=== PATIENT | female | born 1965 | race Caucasian/White ===

== ENCOUNTER 2018-06-21 08:14 | Inpatient (IN) | payer SELFPAY ==
[2018-06-21] MEDS ORDERED: NS 0.9% 1000 ML* 1,000 ML IV ONE (08:46)
--- NOTE | 2018-06-21 09:07 | ED ---
Complex/Multi-Sys Presentation - HPI Summary HPI Summary: Patient is a 52 y/o female who presents to the ED c/o back pain. She states she has not been feeling well for 1 year. 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 The mass is believed to be a neoplasm, and they also found enlarged lymph nodes. Patient was offered to stay in the hospital for a work-up and surgery, but she declined because she wanted to have her work-up here. She also has a low pulse in the 30s , which goes down to the 20s when shes sick. Patient becomes dizzy and near- syncopal with this low pulse. She has cardiac issues and was offered in the past to get a pacemaker but she refused. Recently, patient has been more sick within this past week with flu-like symptoms. She reports severe upper back pain that feels stabbing and a runny nose. Patient denies any CP, SOB, or abdominal pain. She is a smoker and uses marijuana for the pain. - History Of Current Complaint Chief Complaint: EDGeneral Time Seen by Provider: 06/21/18 08:32 Hx Obtained From: Patient, Medical Records Onset/Duration: Gradual Onset, Lasting Weeks - 1 year, worse this past week, Still Present Timing: Constant Location: Pain At: - Upper back Character: Sharp - Stabbing Associated Signs And Symptoms: Positive: Dizziness, Back Pain. Negative: SOB, Chest Pain, Abdominal Pain Related History: Recent Hospitalization - Found hilar mass on CT - Allergies/Home Medications Allergies/Adverse Reactions: Allergies Allergy/AdvReac Type Severity Reaction Status Date / Time Sulfa (Sulfonamide Allergy Altered Verified 06/21/18 08:28 Antibiotics) Mental Status Home Medications: Home Medications Hydrocodone/Acetaminophen [Hydrocodone-Acetamin 5-325 mg] 1 tab PO Q6HR PRN 11/07 [History Confirmed 06/21/18] Naproxen [Naproxen 500 mg tab] 500 mg PO BID PRN 06/21/18 [History Confirmed 11/07] PMH/Surg Hx/FS Hx/Imm Hx Cardiovascular History: Reports: Other Cardiovascular Problems/Disorders - Chronic bradycardia, PVCs Respiratory History: Reports: Hx Asthma - Surgical History Surgery Procedure, Year, and Place: C-sections, cardiac catherization - Immunization History Immunizations Up to Date: Yes Infectious Disease History: No Infectious Disease History: Denies: Traveled Outside the [place] in Last 30 Days - Family History Known Family History: Negative: Blood Disorder - Social History Alcohol Use: None Hx Substance Use: Yes Substance Use Type: Reports: Marijuana Hx Tobacco Use: Yes Smoking Status (MU): Heavy Every Day Tobacco Smoker Type: Cigarettes Amount Used/How Often: 1/2 ppd Have You Smoked in the Last Year: Yes Review of Systems Positive: Other - Malaise Positive: Nasal Discharge Negative: Chest Pain Negative: Shortness Of Breath Negative: Abdominal Pain Positive: Myalgia - Upper back pain Neurological: Other - Dizziness Positive: Syncope - Near-syncope All Other Systems Reviewed And Are Negative: Yes Physical Exam - Summary Physical Exam Summary: VITAL SIGNS: Reviewed. GENERAL: Patient is a well-developed and nourished FEMALE who is lying comfortable in the stretcher. Patient is not in any acute respiratory distress. HEAD AND FACE: No signs of trauma. No ecchymosis, hematomas or skull depressions. No sinus tenderness. EYES: PERRLA, EOMI x 2, No injected conjunctiva, no nystagmus. EARS: Hearing grossly intact. Ear canals and tympanic membranes are within normal limits. MOUTH: Oropharynx within normal limits. NECK: Supple, trachea is midline, no adenopathy, no JVD, no carotid bruit, no c- spine tenderness, neck with full ROM. CHEST: Symmetric, no tenderness at palpation LUNGS: Crackles in bilateral bases CVS: Regular rate and rhythm, S1 and S2 present, no murmurs or gallops appreciated. ABDOMEN: Soft, non-tender. No signs of distention. No rebound no guarding, and no masses palpated. Bowel sounds are normal. EXTREMITIES: FROM in all major joints, no edema, no cyanosis or clubbing. NEURO: Alert and oriented x 3. No acute neurological deficits. Speech is normal and follows commands. SKIN: Dry and warm Triage Information Reviewed: Yes Vital Signs On Initial Exam: Initial Vitals Temp Pulse Resp BP Pulse Ox 98.3 F 44 17 140/75 100 06/21/18 08:19 06/21/18 08:19 06/21/18 08:19 06/21/18 08:19 06/21/18 08:19 Vital Signs Reviewed: Yes Diagnostics - Vital Signs Vital Signs Temp Pulse Resp BP Pulse Ox 06/21/18 08:19 98.3 F 44 17 140/75 100 - Laboratory Result Diagrams: 06/22/18 04:54 06/22/18 04:54 Lab Statement: Any lab studies that have been ordered have been reviewed, and results considered in the medical decision making process. - Radiology CXR Xray Interpretation: Positive (See Comments) - STABLE RIGHT PERIHILAR MASS. ED physician reviewed radiology report. Radiology Interpretation Completed By: Radiologist - EKG 08:51 Cardiac Rate: Bradycardia - 41 bpm EKG Rhythm: Sinus Rhythm EKG Interpretation: No ST elevations Complex Multi-Symp Course/Dx Assessment/Plan: Patient is a 52 y/o female who presents to the ED c/o back pain. She states she has not been feeling well for 1 year. 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 The mass is believed to be a neoplasm, and they also found enlarged lymph nodes. Patient was offered to stay in the hospital for a work-up and surgery, but she declined because she wanted to have her work-up here. She also has a low pulse in the 30s, which goes down to the 20s when shes sick. Patient becomes dizzy and near-syncopal with this low pulse. She has cardiac issues and was offered in the past to get a pacemaker but she refused. Recently, patient has been more sick within this past week with flu-like symptoms. She reports severe upper back pain that feels stabbing and a runny nose. Patient denies any CP, SOB, or abdominal pain. She is a smoker and uses marijuana for the pain. This patient hand in a CT reports of the chest done at [facility] in [place] which is reads as right hilar a spiculated mass concerning for primary neoplasm. 5 mm right upper lobe lung nodule. Right hilar lymph nodes and shotty right pretracheal lymph node bilateral adrenal nodules. Indeterminate hypervascular hepatic lesion. Follow-up with the abdomen and pelvic CT. Blood work without any significant abnormality except for glucose of 110, AST 11, CRP 31, BNP 122. Chest x-ray impression: A stable right perihilar mass. I discussed the case with Dr. Delatorre from oncology and he will be happy to consult for this patient. Because of the complaint of dizziness or feeling that she is going to pass out with a symptomatic bradycardia I discussed the case with with Dr. Champion from the hospital services and he accepted the patient for admission. At this time the patient is hemodynamically stable alert and oriented 3. - Diagnoses Provider Diagnoses: Symptomatic bradycardia, Lung mass - Physician Notifications Discussed Care Of Patient With: Rony Champion Time Discussed With Above Provider: 11:50 Instructed by Provider To: Admit As Inpatient Discharge - Sign-Out/Discharge Documenting (check all that apply): Patient Departure - Admit - Discharge Plan Condition: Stable Disposition: ADMITTED TO [facility] - Billing Disposition and Condition Condition: STABLE Disposition: Admitted to [facility] - Attestation Statements Document Initiated by Steveibe: Yes Documenting Scribe: Emerald Rachel Provider For Whom Sun is Documenting (Include Credential): Lenny Galindo MD Scribe Attestation: Emerald Cordero, scribed for Lenny Galindo MD on 06/23/18 at 0858. Scribe Documentation Reviewed: Yes Provider Attestation: The documentation as recorded by the Emerald marquis accurately reflects the service I personally performed and the decisions made by , Lenny Galindo MD
[2018-06-21 09:19] LABS: ABS Basophils 0.1 10^3/ul (0-0.2); ABS Eosinophils 0.3 10^3/ul (0-0.6); ABS Lymphocytes 2.6 10^3/ul (1.0-4.8); ABS Monocytes 0.9 10^3/ul (0-0.8); ABS Nucleated RBC 0 10^3/ul; Eosinophil % 2.7 % (0-6); Hematocrit 40 % (35-47); Hemoglobin 13.1 g/dl (12.0-16.0); Lymphocyte % 23.7 % (25-47); Mean Corpuscular HGB Conc 33 g/dl (31-36); Mean Corpuscular Hemoglobin 27 pg (27-31); Mean Corpuscular Volume 82 fL (80-97); Mean Platelet Volume 8.7 um3 (7.4-10.4); Nucleated Red Blood Cells % 0.1; Platelet Count 186 10^3/ul (150-450); Red Blood Count 4.88 10^6/ul (4.00-5.40); Red Cell Distribution Width 14 % (10.5-15); White Blood Count 10.9 10^3/ul (3.5-10.8)
[2018-06-21 09:28] LABS: INR 0.97 (0.77-1.02)
[2018-06-21 09:40] LABS: EGFR Non-African American 87.2 (>60)
--- NOTE | 2018-06-21 10:05 | RAD ---
HISTORY: Weakness COMPARISONS: CT of the chest dated June 17, 2018 VIEWS: 4: Frontal dual-energy and lateral views of the chest. FINDINGS: CARDIOMEDIASTINAL SILHOUETTE: The cardiomediastinal silhouette is normal. LUIS: The luis are normal. PLEURA: The costophrenic angles are sharp. No pleural abnormalities are noted. LUNG PARENCHYMA: There is a density of the right perihilar lung corresponding to the mass visible on the CT of June 17, 2018. There is hyperinflation. ABDOMEN: The upper abdomen is clear. There is no subphrenic gas. BONES AND SOFT TISSUES: No bone or soft tissue abnormalities are noted. OTHER: None. IMPRESSION: STABLE RIGHT PERIHILAR MASS.
[2018-06-21 10:39] LABS: Urine Appearance Cloudy; Urine Blood Negative (Negative); Urine Color Yellow; Urine Ketones Negative (Negative); Urine Protein Negative (Negative); Urine Specific Gravity 1.025 (1.010-1.030); Urine Urobilinogen Negative (Negative)
[2018-06-21] MEDS ORDERED: Acetaminophen TAB* 325 MG PO PRN (12:14)
[2018-06-21] MEDS ORDERED: NS 0.9% 1000 ML* 1,000 ML IV SCH (12:15)
[2018-06-21] MEDS ORDERED: ceFAZolin 1 GM VIAL(*) 1 GM in NS 0.9% 50 ML* 50 ML IVPB ONE (12:46)
[2018-06-21] MEDS ORDERED: Diazepam TAB(*) 5 MG PO ONE (12:46)
[2018-06-21] MEDS ORDERED: ceFAZolin 2 GM PREMIX in ORs 2 GM/50 ML BAG IVPB ONE (12:46)
[2018-06-21] MEDS ORDERED: ceFAZolin 1 GM/10 ML flush(*) SYRINGE for pocket flush (cardiology) FLUSH ONE (13:00)
[2018-06-21] MEDS ORDERED: Lidocaine 1% INJ* 10 MG/ML 30 ML SDV ONE (14:46)
[2018-06-21] MEDS ORDERED: Midazolam* 1 MG/ML 5 ML VIAL (5 MG) ONE (14:52)
[2018-06-21] MEDS ORDERED: fentaNYL* 50 MCG/ML 2 ML VIAL (100 MCG VIAL) ONE (14:52)
[2018-06-21] MEDS: Heparin VIAL(*) 5000 UNITS/ML VIAL (FIVE THOUSAND) SUBCUT SCH ×2 (14:58→22:24)
--- NOTE | 2018-06-21 14:59 | ECHO ---
Patient: NOAH HART [facility] Rec#: [id number] : 1965 Date: 06/21/2018 Age: 52y Height: 165 cm / 65.0 in Weight: 160 kg / 352.6 lbs Sex: F BSA: 2.52 Room#: [id number] Admit Date#: 06/21/2018 Type: Inpatient Referring: Alex Garza MD Reading: Alex Garza MD Frozen Yogurt Maker: [facility] Transthoracic Echocardiogram Indication: Shortness of breath BP: 126/79 HR: 40 Rhythm: Bradycardia Findings History: Smoker, hilar mass. Technical Comments: The study quality is good. Completed at 1415. Left Ventricle: The left ventricular chamber size is mildly dilated. There is no left ventricular hypertrophy. There is diffuse global hypokinesis of the left ventricle. Left ventricular systolic function is at the lower limits of normal. The estimated ejection fraction is 50-55%. Normal left ventricular diastolic filling is observed. Left Atrium: The left atrium is moderately dilated. Right Ventricle: Moderator Band present. The right ventricular cavity size is normal. The right ventricular global systolic function is normal. Right Atrium: The right atrium is moderately dilated. Aortic Valve: The aortic valve is trileaflet. The aortic valve leaflets are mildly thickened. There is a trace of aortic regurgitation. There is no evidence of aortic stenosis. Mitral Valve: The mitral valve leaflets are mildly thickened. There is trace to mild mitral regurgitation. There is no evidence of mitral stenosis. Tricuspid Valve: The tricuspid valve leaflets are normal. There is trace to mild tricuspid regurgitation. The right ventricular systolic pressure is estimated at 30 mmHg. There is evidence that pulmonary hypertension may be underestimated. There is no tricuspid stenosis. Pulmonic Valve: The pulmonic valve appears normal. There is a trace pulmonic regurgitation. There is no pulmonic stenosis. Pericardium: There is no significant pericardial effusion. Aorta: There is mild dilatation of the ascending aorta. There is no dilatation of the aortic arch. The aortic root is normal in size. Pulmonary Artery: The main pulmonary artery appears normal. Venous: The inferior vena cava is dilated. There is a greater than 50% respiratory change in the inferior vena cava dimension. Summary: There was not any prior study for comparison. Conclusions There is diffuse global hypokinesis of the left ventricle. Left ventricular systolic function is at the lower limits of normal. The estimated ejection fraction is 50-55%. The right ventricular global systolic function is normal. There is no evidence of aortic stenosis. There is trace to mild mitral regurgitation. There is trace to mild tricuspid regurgitation. The right ventricular systolic pressure is estimated at 30 mmHg. There is no significant pericardial effusion. Measurements Name Value Normal Range RVIDd (AP) 2D 3.2 cm (0.9 - 2.6) RVDdMajor (2D) 3.9 cm (2.2 - 4.4) RAd ISD 4CH 5.6 cm (3.4 - 4.9) RA (A4C)W 2.7 cm (2.9 - 4.6) IVSd (2D) 0.7 cm (0.6 - 1) LVPWd (2D) 0.8 cm (0.6 - 1) LVIDd (2D) 5.6 cm (3.6 - 5.4) LVIDs (2D) 4.3 cm - LV FS (2D) 23 % (25 - 45) Aortic Annulus 1.8 cm (1.4 - 2.6) Ao root diameter (2D) 3.4 cm (2.1 - 3.5) Ascending Ao 3.5 cm (2.1 - 3.4) Aortic arch 2.5 cm (1.8 - 3.4) LA dimension (AP) 2D 4 cm (2.3 - 3.8) LAd ISD 4CH 5.6 cm (2.9 - 5.3) LA ISD 4CH W 4.5 cm (2.5 - 4.5) Name Value Normal Range LA ESV BP (A/L) index 44 ml/m2 - Name Value Normal Range MV E-wave Vmax 0.7 m/sec - MV deceleration time 169 msec - MV A-wave Vmax 0.6 m/sec - MV E:A ratio 1.1 ratio - LV septal e' Vmax 0.08 m/sec - LV lateral e' Vmax 0.09 m/sec - LV E:e' septal ratio 8.75 ratio - LV E:e' lateral ratio 7.78 ratio - Name Value Normal Range AV Vmax 1.5 m/sec - AV VTI 38.3 cm - AV peak gradient 9 mmHg - AV mean gradient 5 mmHg - LVOT Vmax 1 m/sec - LVOT VTI 24.8 cm - LVOT peak gradient 4 mmHg - LVOT mean gradient 2 mmHg - ELE Vmax 0.7 m/sec - Name Value Normal Range TR Vmax 2.6 m/sec - TR peak gradient 27 mmHg - RAP 3 mmHg - RVSP 30 mmHg - IVC diameter 2.7 cm - Name Value Normal Range PV Vmax 0.8 m/sec - PV peak gradient 2 mmHg -
[2018-06-21] MEDS: HYDROcodone/ACETAMIN 5-325 MG* 1 TAB PO PRN ×2 (16:45→22:39)
--- NOTE | 2018-06-21 18:06 | RAD ---
INDICATION: Status post device implant. COMPARISON: Correlation is made with a prior chest x-ray study obtained earlier today and a recent outside CT of the chest from June 17, 2018. TECHNIQUE: A portable view of the chest was obtained. FINDINGS: Cardiac and mediastinal contours appear to be within normal limits. The patient is status post placement of a dual-chamber transvenous pacemaker. Again note is made of a mass which projects lateral to the right hilum measuring 3.5 x 2.5 cm in size. This appears unchanged from the recent prior CT of the chest. No pleural effusion or pneumothorax is seen. IMPRESSION: 1. STATUS POST PACEMAKER PLACEMENT, NO EVIDENCE FOR ACUTE FINDING. 2. THERE IS A MASS WHICH PROJECTS LATERAL TO THE RIGHT HILUM.
--- NOTE | 2018-06-21 20:58 | HP ---
CC: Dr. Delatorre; Dr. Garza * HISTORY AND PHYSICAL: DATE OF ADMISSION: 06/21/18 PRIMARY CARE PROVIDER: None. ATTENDING PHYSICIAN WHILE IN THE HOSPITAL: Edward Champion MD * (report dictated by Uvaldo Burrows NP). CONSULTING ONCOLOGIST: Dr. Delatorre. CONSULTING LEASE EXAMINER: Dr. Garza. CHIEF COMPLAINT: 1. Bradycardia. 2. Lung mass. HISTORY OF PRESENT ILLNESS: Ms. Isabel is a 52-year-old female patient. She has a known history of sick sinus syndrome. She received evaluation with an air traffic control specialist, Dr. Cee from [facility]. The records are in [employer] and they were accessed by Dr. Garza. She has been lost to followup. She was being seen by Dr. Nielson for this and was supposed to have a pacemaker. Unfortunately , she did not have insurance and she refused to have the pacemaker placed. She has not seen a hand blocker or a PCP in the last 3 years. However, the last few days when she traveled down to [place] periodically to do help down there and work, she was having episodes with pain in her back and having a cough that was nonproductive and had been going on for several days. She went to an ER down there. She ultimately had CT imaging, which did show a mass in the hilar area that was approximately 3.8 x 2.7 cm and she had a 6 mm paratracheal lymph node. The patient at that point was offered workup down in [place] at [facility], but the patient decided that she want to come back to [facility] for further workup where her family was. She denies having any fevers or chills. Denies having any cough. She is admitting having low back pain currently, but she says this is near her baseline. She denied having any dysuria or frequency. There have been no reports of weight loss that she is aware of. Denies having any vomiting or diarrhea. There are no reports of syncope. She does state that she has just been feeling tired and denied having any chest pain or shortness of breath or orthopnea. She came into the ED today. She was noted again to be bradycardic and because of this we were asked to evaluate for admission. PAST MEDICAL HISTORY: Significant for sick sinus syndrome. PAST SURGICAL HISTORY: She has had and a cardiac catheterization 3 years ago, which was reported as no coronary artery disease. HOME MEDICATIONS: Include: 1. Naproxen 500 mg p.o. b.i.d. as needed. 2. Aspirin 81 mg daily. 3. Tylenol 2 tablets every 6 hours as needed. 4. [place] 1 tablet every 6 hours as needed. ALLERGIES TO MEDICATIONS: Include SULFA DRUGS. FAMILY HISTORY: Her mother had lung cancer and her father had a history of CAD. SOCIAL HISTORY: She is a half a pack a day smoker. She has been smoking for about 30 to 35 years. She does not drink alcohol. Surrogate decision maker is her daughter. REVIEW OF SYSTEMS: There is no documented fever. She denied having any significant weight change. There was no double vision. She denied having any ear discharge. There is no rhinorrhea. There was no sore throat, no thyroid enlargement. She denied having any chest pain. There was no orthopnea. There was no nocturnal dyspnea. She denied having any abdominal pain. There was no nausea, no vomiting. There was no dysuria, no frequency. No seizure, no loss of consciousness. No pruritus and no skin ulcerations. Review of 14 systems was completed, all others negative. PHYSICAL EXAMINATION GENERAL: At this time, Ms. Isabel is a 52-year-old female patient. She is sitting in the ED stretcher. She does not appear to be in any acute distress. VITAL SIGNS: Blood pressure 126/79 with a pulse of 37, respirations were 20, O2 sat 97%, temperature 98.3. HEENT: Head: Atraumatic and normocephalic. Eyes: EOMs are intact. Sclerae anicteric and not pale. Throat: Oral mucosa appears to be moist. No oropharyngeal erythema. NECK: Supple. LUNGS: Clear to auscultation bilaterally. There were no wheezes, rales, or rhonchi. HEART: Sounds S1, S2. She is bradycardic. There were no murmurs, rubs, or gallops. ABDOMEN: Soft. It was flat. It was nontender. Bowel sounds were present. EXTREMITIES: Pulses were 2+ throughout. She is moving all 4 extremities with 5 /5 strength. NEUROLOGICAL: She is awake. She is alert. She is oriented x3. Tongue midline. Health/Safety Job Titles were equal. She had no gross focal deficits. SKIN: Intact. DIAGNOSTIC STUDIES/LAB DATA: WBC 10.9, RBC of 4.88, hemoglobin of 13.1, hematocrit of 40, platelet count of 186,000. The INR was 0.97, PTT of 32.0. Sodium 141, potassium 4.4, chloride of 109, bicarb 28, BUN 19, creatinine 0.70, glucose 110, lactic 0.9, calcium 9.1. Total bili 0.3, AST 11, ALT 13, alk phos 45. CK 51, CK- MB 1.3, troponin 0. CRP of 31. Albumin of 3.7. Urine was obtained and it was negative. She did have a chest x-ray obtained today, which showed impression: Stable right hilar mass. She did have an EKG obtained today showing a sinus bradycardia, rate of 41. No ST elevations or T-wave inversions were noted. Old medical records were reviewed. ASSESSMENT AND PLAN: Ms. Isabel is a 52-year-old female patient coming into the ED today with complaints of fatigue, in addition to this abnormal CT findings and bradycardia. The patient presented to the ER for this. She was found to be bradycardic. We were asked to evaluate for admission. She will be admitted under observation status for: 1. Bradycardia. I did touch base with Dr. Garza, who will evaluate the patient for possible pacemaker. She is n.p.o. possibly for this today. She is hemodynamically stable. I will check her TSH and her mag. I will cycle her troponins and we will continue to follow. 2. Hilar mass. I had a call out to Dr. Delatorre. The plan would be for a possible biopsy of this, but again we will need to address the cardiac issues first and we will continue to monitor for the time being, but she will need again followup with Dr. Delatorre, she will need biopsy and we will need to get this arranged after we address the cardiac issues. 3. DVT prophylaxis: She is high risk. She will be placed on heparin subcu, which is on hold until pacemaker placement. 4. Code status: Full code. 5. Fluids, electrolytes, and nutrition: N.p.o. She has had normal saline at 100 an hour while she is n.p.o. TIME SPENT: Time spent on the admission was 60 minutes, greater than half the time was spent [id number] with the patient obtaining my history and physical, other half time was spent going over the plan of care with the patient and implementing the plan of care. I discussed the plan of care with my attending, Dr. Champion; he is in agreement. UVALDO BURROWS NP [id number]/[facility] #: [id number] JORDAN
--- NOTE | 2018-06-21 20:58 | CONS ---
CARDIOLOGY CONSULTATION: DATE OF CONSULT: 06/21/18 INDICATION FOR CONSULTATION: Bradycardia. HISTORY OF PRESENT ILLNESS: The patient is a 52-year-old female with a long history of bradycardia, who was admitted to the emergency room after having an abnormal CAT scan done in [place]. The patient was seen in [address] Nielson and by Dr. Ravi Cee. At that time, cardiac catheterization showed normal coronary arteries and echocardiogram showed low normal LV systolic function. The patient had significant bradycardia and was diagnosed with sick sinus syndrome. Pacemaker was recommended at that time and the patient did not want to proceed with pacemaker implantation. The patient was recently in [place] and went to the emergency room for evaluation of shortness of breath. At that time, CAT scan showed a suspicious mass in her right upper lung murphy and a suspicious mass in her adrenal gland. The patient came back to [place] for evaluation. The patient is now in the emergency room for evaluation. The patient's baseline heart rate is 38 beats per minute. Over the past couple of years, the patient has had a couple of episodes of lightheadedness, but no true episodes of syncope. PAST SURGICAL HISTORY: None. OUTPATIENT MEDICATIONS: 1. Pain medications. 2. Naprosyn. 3. Aspirin. ALLERGIES: To SULFA MEDICATIONS. FAMILY HISTORY: No family history of early coronary artery disease or cardiac arrhythmias. 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 She does smoke 1 pack of cigarettes a day. Occasional alcohol use. No recreational drug use. REVIEW OF SYSTEMS: Negative for fevers and chills. Negative for changes in bowel or bladder habits. Negative for changes in weight. Other 12-point review is unremarkable. PHYSICAL EXAM: Height is 5 feet 5 inches, weight is 160 pounds, heart rate is 38, blood pressure 124/72, respiratory rate is 15, oxygen saturation 97% on room air. Sclerae anicteric. Oropharynx is pink without erythema. Carotids are 2+ without bruits. JVD is normal. Thyroid is normal. Cardiac Exam: S1, S2 without any murmurs, rubs, or gallops. Lungs are clear to auscultation bilaterally. There is no dullness to percussion. Abdomen is soft, nontender, nondistended with normoactive bowel sounds. Extremities show no edema. She has 2+ pulses throughout. The patient is awake, alert, and oriented. She moves all extremities equally. DIAGNOSTIC STUDIES/LAB DATA: EKG today demonstrates sinus bradycardia at 41 beats per minute, otherwise unremarkable. Laboratory studies: CBC within normal limits. Chemistries within normal limits. Chest x-ray shows a density in the perihilar lung. IMPRESSION AND PLAN: This is a 52-year-old female, who came to the emergency room for evaluation of a hilar lung mass. The patient has a heart rate of 38 beats per minute. The patient has had an evaluation in the past by Dr. Cee and the recommendation at that time was permanent pacemaker implantation. Given the diagnosis of a hilar mass, it is recommended that the patient undergo pacemaker implantation to facilitate the evaluation of her hilar mass. The risks and benefits of this were described in great detail and the patient is willing to proceed. The patient will be scheduled for permanent pacemaker implantation today. [id number]/[facility] #: [id number] MTDD
[2018-06-22] MEDS: HYDROcodone/ACETAMIN 5-325 MG* 1 TAB PO PRN ×4 (02:35→16:11)
[2018-06-22 05:17] LABS: ABS Basophils 0.1 10^3/ul (0-0.2); ABS Eosinophils 0.3 10^3/ul (0-0.6); ABS Lymphocytes 2.4 10^3/ul (1.0-4.8); ABS Monocytes 0.7 10^3/ul (0-0.8); ABS Neutrophils 5.3 10^3/ul (1.5-7.7); ABS Nucleated RBC 0 10^3/ul; Hematocrit 39 % (35-47); Hemoglobin 12.8 g/dl (12.0-16.0); Lymphocyte % 27.7 % (25-47); Mean Corpuscular HGB Conc 33 g/dl (31-36); Mean Corpuscular Hemoglobin 27 pg (27-31); Mean Corpuscular Volume 82 fL (80-97); Mean Platelet Volume 8.7 um3 (7.4-10.4); Nucleated Red Blood Cells % 0.1; Platelet Count 191 10^3/ul (150-450); Red Blood Count 4.78 10^6/ul (4.00-5.40); Red Cell Distribution Width 13 % (10.5-15); White Blood Count 8.7 10^3/ul (3.5-10.8)
[2018-06-22 05:24] LABS: INR 1.03 (0.77-1.02)
[2018-06-22 05:38] LABS: EGFR Non-African American 100.3 (>60)
[2018-06-22] MEDS: Heparin VIAL(*) 5000 UNITS/ML VIAL (FIVE THOUSAND) SUBCUT SCH ×2 (05:56→15:50)
--- NOTE | 2018-06-22 08:49 | RAD ---
INDICATION: Post pacemaker placement yesterday. Asthma. COMPARISON: June 21, 2018 chest radiograph and June 17, 2018 CT. TECHNIQUE: Dual energy PA and routine lateral views of the chest were obtained. REPORT: Unchanged RIGHT atrial and RIGHT ventricular level pacemaker leads. Negative for pneumothorax. RIGHT mid lung zone perihilar mass measuring up to 2.4 cm cephalocaudal by 4.2 cm transverse is grossly unchanged compared with the previous chest radiograph and CT. Associated prominence of the RIGHT hilum corresponding with hilar adenopathy on CT. Grossly clear pleural spaces. Negative for cardiomegaly. Unremarkable central pulmonary vasculature. IMPRESSION: #. Negative for pneumothorax or pulmonary edema post pacemaker placement. #. RIGHT upper lobe mass and hilar adenopathy.
[2018-06-22] MEDS ORDERED: Aspirin EC TAB* 81 MG TAB.EC PO SCH (09:00)
--- NOTE | 2018-06-22 10:59 | OP ---
AMENDED REPORT NOW INCLUDES DATE OF OPERATION - ESIGNED BEFORE ADJUSTMENT * DATE OF OPERATION: 06/21/18 - ROOM #451 DATE OF : 61 SURGEON: Alex Garza MD ANESTHESIA: Local anesthesia with conscious sedation. PRE-OP DIAGNOSES: 1. Sick sinus syndrome. 2. Brachycardia. POST-OP DIAGNOSES: 1. Sick sinus syndrome. 2. Brachycardia. OPERATIVE PROCEDURE: Dual-chamber pacemaker implantation. INDICATIONS: The patient is a 52-year-old female who has a history of sick sinus syndrome and bradycardia. She had been evaluated by an stage technician up at [facility] in 2016. At that time, the recommendations were to undergo dual-chamber pacemaker implantation. She did not have any insurance at that time and decided not to proceed with that. The patient was recently diagnosed with right upper hilar mass and was evaluated in the emergency room. The patient's heart rate was 38 beats per minute, permanent pacemaker was recommended. ESTIMATED BLOOD LOSS: Nil. COMPLICATIONS: None. DESCRIPTION OF PROCEDURE: The patient was brought to the procedure room in a fasting state. Informed consent had been obtained prior to the procedure. All labs had been reviewed. The patient was placed supine on the procedure table. Her left deltopectoral area was cleaned and draped in the usual fashion. 1% lidocaine was used for local anesthesia. The axillary vein was entered by a modified Seldinger technique and a guidewire was placed. A second wire was placed under the same technique using ultrasound guidance. A 4-cm incision was made in the pectoral area and blunt dissection was carried down to the pectoral fascia. A small pocket was fashioned for the pacemaker. Over the guidewire, a 7-[place] sheath introducer was placed, through which a right ventricular lead was advanced to the RV apex and the right ventricular lead is a Medtronic model 5076, serial number [id number] and had a R-wave sensitivity of 3.5, impedance 778 ohms, threshold 0.6 volts at 0.5 milliseconds. The ventricular lead was sutured to the pectoral fascia. Over the guidewire, a 7-[place] sheath introducer was placed, through which a right atrial lead was advanced to the high right atrium. The right atrial lead is a Medtronic model 5076, serial number [id number] and had a P-wave sensitivity of 2.8, impedance 926 ohms, threshold 1.6 volts at 0.5 milliseconds. The atrial lead was sutured to the pectoral fascia. The pocket was flushed with antibiotic infused normal saline. A generator was attached appropriately to the atrial and ventricular lead. The generator is a [employer] model W1DR01, serial number [id number]. The device was placed in the pocket and surgical incision was closed in 3 layers. The patient tolerated the procedure well with no complications. [id number]/[facility] #: [id number] [facility]ITALPancho
[2018-06-22] MEDS ORDERED: Benzonatate CAP* 100 MG PO PRN (12:09)
--- NOTE | 2018-06-22 13:54 | PN ---
Subjective Date of Service: 06/22/18 - CC: back pain Interval History: The patient has been walking post pacemaker, no SOB. Back pain is severe. Medications Active Medications: Acetaminophen (Tylenol Tab*) 650 mg PO Q4H PRN PRN Reason: FEVER/PAIN Hydrocodone Bitart/Acetaminophen ([place] 5-325 Tab*) 1 tab PO Q4H PRN PRN Reason: PAIN Last Admin: 06/22/18 11:32 Dose: 1 tab Aspirin (Aspirin Ec Tab*) 81 mg PO DAILY ROE Last Admin: 06/22/18 08:48 Dose: 81 mg Benzonatate (Tessalon Cap*) 100 mg PO BID PRN PRN Reason: COUGH Last Admin: 06/22/18 12:33 Dose: 100 mg Guaifenesin (Mucinex*) 1,200 mg PO BID [facility] Heparin Sodium (Porcine) (Heparin Vial(*)) 5,000 units SUBCUT Q8HR [facility] Last Admin: 06/22/18 05:56 Dose: 5,000 units Sodium Chloride (Ns 0.9% 1000 Ml*) 1,000 mls @ 100 mls/hr IV PER RATE [facility] Objective Vital Signs: Temp Pulse Resp BP Pulse Ox 97.5 F 59 18 129/79 95 06/22/18 08:05 06/22/18 08:05 06/22/18 11:32 06/22/18 08:05 06/22/18 08:05 Oxygen Devices in Use Now: None Appearance: older middle aged woman, lying in bed, shoulder immobilzer on, appears comfortable unless she moves. Eyes: No Scleral Icterus, PERRLA Ears/Nose/Mouth/Throat: Mucous Membranes Moist Neck: NL Appearance and Movements; NL JVP, No Thyroid Enlargement, Masses Respiratory: Symmetrical Chest Expansion and Respiratory Effort - diffuse wheezing Cardiovascular: RRR Abdominal: NL Sounds; No Tenderness; No Distention Extremities: No Edema Neurological: Alert and Oriented x 3, NL Muscle Strength and Tone Lines/Tubes/Other Access: Clean, Dry and Intact Peripheral IV Laboratory Results: 06/22/18 04:54 06/22/18 04:54 INR (Anticoag Therapy) 1.03 (0.77-1.02) H 06/22/18 04:54 APTT 32.4 seconds (26.0-36.3) 06/22/18 04:54 Total Bilirubin 0.30 mg/dL (0.2-1.0) 06/21/18 09:08 AST 11 U/L (13-39) L 06/21/18 09:08 ALT 13 U/L (7-52) 06/21/18 09:08 Alkaline Phosphatase 45 U/L (34-104) 06/21/18 09:08 CK-MB (CK-2) 1.3 ng/mL (0.6-6.3) 06/21/18 09:08 B-Natriuretic Peptide 122 pg/mL (-100) H 06/21/18 09:08 Total Protein 6.4 g/dL (6.4-8.9) 06/21/18 09:08 Albumin 3.7 g/dL (3.2-5.2) 06/21/18 09:08 Globulin 2.7 g/dL (2-4) 06/21/18 09:08 Albumin/Globulin Ratio 1.4 (1-3) 06/21/18 09:08 Triglycerides 59 mg/dL 06/22/18 04:54 Cholesterol 110 mg/dL 06/22/18 04:54 LDL Cholesterol 69 mg/dL 06/22/18 04:54 HDL Cholesterol 28.9 mg/dL 06/22/18 04:54 TSH 2.72 mcIU/mL (0.34-5.60) 06/21/18 09:08 06/21/18 09:08 Troponin I 0.00 Diagnostic Imaging: CXR today: hilar fullness noted (R), no pneumothorax, good lead placement. EKG Data: Predominantly A paced. Pacemaker interrogation: Medtronic sytem A lead impedance 665 Oms, P waves 3 mV, A pacing threshold 0.5 V @ 0.4 ms V lead impedance 608 Oms, R waves 4.9 mV V pacing threshold 0.5 V@ 0.4 ms. A pacing 89% overnight. Programmed DDD lower rate 60 bpm. Assessment/Plan 52 yo female with SSS s/p dual chamber pacemaker implantation yesterday. Pacemaker function is good and CXR shows no pneumothorax. OK for discharge from a cardiac standpoint. Needs Keflex 500 mg TID x 4 days Has a wound check with Dr Greg Smith 06/28/18 2 PM at Medical office Building next to [facility]. Ok for lung biopsy, but they should avoid lifting L arm above her head during the procedure.
[2018-06-22 16:43] VITALS: BP 116/72
[2018-06-22] MEDS ORDERED: guaiFENesin ER TAB 600 MG PO SCH (21:00)
--- NOTE | 2018-06-22 21:28 | CONS ---
PULMONARY CONSULTATION REPORT: DATE OF CONSULT: 06/22/18 CONSULTATION REQUESTED BY: CECELIA Brown REASON FOR CONSULT: Evaluation of abnormal CT chest. HISTORY OF PRESENT ILLNESS: The patient is a 52-year-old female with significant smoking history, quit just 2 days ago, who presents to the emergency room for evaluation, not feeling well and has flu-like symptoms. She recently was in [place], presented to the emergency room down there with same symptoms. The patient had chest x-ray in [place] that showed hilar mass. She had dedicated CT scan for further evaluation. I have personally reviewed CT scan of the chest with the patient today - the patient noted to have mass in the right upper lobe measuring 3.8 x 2.7 with evidence of other small nodule in the vicinity. The patient also with mildly enlarged paratracheal lymph node on the right side and prominence of right hilar node. The patient also with evidence of hypervascular lesions in the liver and adrenal nodules bilaterally. Pulmonary consultation was requested for evaluation of CT chest abnormality. The patient signed her off in [place] and [facility] She presented to the emergency room for further evaluation of her symptoms. The patient denies fevers or chills. She reports having sick contacts recently. Reports mild intermittent cough. The patient reports not feeling well. The patient also reports low back pain, which is chronic per her, has been worsening recently. The patient denies dysuria or increased urinary frequency. The patient denies loss of weight or appetite. The patient denies vomiting, diarrhea, syncope. The patient reports significant fatigue. She denies chest pain or palpitations. The patient was noted to be significantly bradycardic upon further evaluation in the emergency room. Of note, she has history of symptomatic bradycardia, was evaluated by water resource engineering specialist, Dr. Cee, from [facility] in the past when she presented with similar complaints. Pacemaker was recommended; however, due to not having insurance, she did not pursue this. PAST MEDICAL HISTORY: Sick sinus syndrome with bradycardia and chronic back pain. PAST SURGICAL HISTORY: and cardiac catheterization 3 years ago with no evidence of coronary artery disease. MEDICATIONS AT HOME: 1. Naprosyn 500 mg p.o. b.i.d. 2. Aspirin 81 mg daily. 3. Tylenol 2 tablets q.6 hours. 4. [place] 1 tablet every 6 hours. ALLERGIES: SULFA. FAMILY HISTORY: Mother had lung cancer and father had coronary artery disease. SOCIAL HISTORY: Half-a-pack per day smoker, has been smoking for 35 years, has not smoked since hospitalization. Her daughter is decision maker and she is at bedside. The patient denies alcohol abuse. 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 REVIEW OF SYSTEMS: All 14 systems reviewed and as per HPI. PHYSICAL EXAM: Thin female, slightly anxious, in no apparent distress. Vital Signs: Temperature 98.8, pulse 62 beats per minute, respiratory rate 18 per minute, O2 saturation 95% on room air, blood pressure 116/72. HEENT: Pupils equal, reactive to light. Mucous membranes moist. Lungs: Diminished air entry bilaterally. No wheezes. Cardiovascular: S1, S2 present, regular. Abdomen: Soft, nondistended. Bowel sounds present. Extremities: Normal range of motion. No edema. Skin: No rash or bruise. Neurologic: No focal deficits. DIAGNOSTIC STUDIES/LAB DATA: WBC count 8.7, hemoglobin 12.8, hematocrit 39, platelet count 191. Sodium 139, potassium 4.1, chloride 108, bicarb 27, BUN 12 , creatinine 0.62. Hemoglobin A1c 5.8. Lactic acid within normal limits. Calcium within normal limits. CRP elevated at 31. BNP slightly elevated at 122. LFTs within normal limits. CT of the chest as described above in HPI. IMPRESSION AND RECOMMENDATIONS: A 52-year-old female with significant smoking history with symptomatic bradycardia, status post pacemaker placement with evidence of right hilar lung mass highly concerning for malignancy. Given significant smoking history, mass is highly concerning for malignancy. She also appears to be having R4 lymph node. The patient has hypervascular lesions in the liver, unclear if they indicate metastatic disease. If liver lesions are indicative of metastatic disease liver biopsy is most likely would be indicated over lung biopsy/EBUS, which is to be done under general anesthesia. The patient also reports concern with not having insurance and she believes she is not able to go through the cost of bronchoscopy. Smoking cessation education and counseling was performed with the patient today , she agreed to quit smoking. I have the discussed the case with CECELIA Brown taking care of the patient. Will plan on scheduling bronchoscopy next Wednesday. Procedure was discussed in detail with the patient. Associated risks and benefits were thoroughly explained. Risk of pneumothorax was thoroughly explained. The patient is agreeable to undergoing the procedure. Further recommendations pending biopsy. [id number]/[facility] #: [id number] [facility]ITAL[facility]
--- NOTE | 2018-06-23 13:39 | DS ---
CC: Dr. Vivek Delatorre, Oncology; Dr. Mandi Valladares, Pulmonology; Dr. Alex Garza, Cardiology * DISCHARGE SUMMARY: DATE OF ADMISSION: 06/21/18 DATE OF DISCHARGE: 06/22/18 PRIMARY CARE PROVIDER: None. ATTENDING PROVIDER: Fartun Narayanan MD * (DICTATED BY CECELIA GOLDEN) PRIMARY DISCHARGE DIAGNOSES: 1. Sick sinus syndrome, status post pacemaker implantation. 2. Lung mass, liver masses, adrenal mass. SECONDARY DISCHARGE DIAGNOSIS: Mild pulmonary hypertension. STUDIES DONE WHILE IN THE HOSPITAL: Electrocardiogram from 06/21/18 shows sinus bradycardia, rate 41; QTc of 434. No ST segment abnormalities. Similar to previous exam. Repeat EKG shows paced rhythm, rate of 63. PAC noted. Repeat EKG shows atrial paced rhythms. Repeat EKG is done for pacemaker testing. Chest x-ray from 06/21/18 read as stable right perihilar mass. Transthoracic echocardiogram read as diffuse global hypokinesis of the left ventricle, left ventricular systolic function lower limits of normal. Estimated ejection fraction 50% to 55%. Right ventricular global systolic function is normal. There is no evidence of aortic stenosis. There is mild mitral regurgitation. There is mild tricuspid regurgitation. Right ventricular systolic pressure is estimated at 30 mmHg. No significant pericardial effusion. Chest x-ray from 06/21/18 read as status post pacemaker placement. No evidence of acute findings. There is a mass, which projects lateral into the right hilum. Chest x-ray from 06/22/18 read as negative for pneumothorax or pulmonary edema, post pacemaker placement, right upper lobe mass and hilar adenopathy. MEDICATIONS AT DISCHARGE: 1. Tylenol 650 mg p.o. q.6 hours as needed. 2. Aspirin 81 mg p.o. daily. 3. Naproxen 500 mg p.o. b.i.d. as needed. 4. [place] 5/325 one tab p.o. q.6 hours as needed. 5. Keflex 500 mg p.o. t.i.d. x12. HOSPITAL COURSE: This is a brief summary of the patient's presentation. For more details, please see the history and physical from Flavio Burrows NP, on 11/07. In brief, the patient is a 52-year-old female with past medical history significant for the above, who initially presented to an ER in [place] where she had CT imaging, which showed a hilar mass approximately 3.8 x 2.7 cm and a 6 -mm paratracheal lymph node, as well as bradycardia. The patient has known sick sinus syndrome and was previously evaluated in this institution, offered a pacemaker, which she declined due to financial concerns. The patient was lost to follow up for subsequent 3 years. The patient, during that time, felt very fatigued, had intermittent dizziness, which is why she presented to the emergency department in [place]. The patient, in her evaluation before, had a cardiac catheterization, which showed no significant coronary artery disease. The patient was found to have a low heart rate in the emergency department and was admitted to the hospital. The patient was seen in consultation by Dr. Alex Garza of Cardiology, who recommended a pacemaker as had been previously recommended, which was placed on 06/21/18 without complication. The patient was stable overnight. The patient had no complication with the procedure. The patient's heart rate came up to the 60s. The patient felt like she had much more energy. The patient has chronic low back pain, which was controlled with her home [place]. The patient had no complications on her x-rays as above. The patient was seen in consultation by Dr. Vivek Delatorre of Oncology, who recommended further nonemergent workup for possible lung cancer, which would consist of bronchoscopy with EBUS, which was arranged outpatient after the patient was seen in consultation by Dr. Mandi Valladares of Pulmonology. The patient will also have outpatient liver ultrasound and a CT of the abdomen with adrenal follow-through. The patient was stable and amenable for discharge on . PHYSICAL EXAM ON DAY OF DISCHARGE: General: The patient is a 52-year-old female who appears her stated age and is sitting comfortably in bed, in no acute distress. HEENT: Head: Normocephalic, atraumatic. Sclerae anicteric. No conjunctival injection. Nasal mucosa moist. Oral mucosa moist. No pharyngeal erythema, discharge, or exudate. Neck: Supple, nontender. No lymphadenopathy. No carotid bruits auscultated. No JVD. Cardiac: Regular rate and rhythm. No clicks, murmurs, gallops, or rubs. Pulses 2+ bilaterally in dorsalis pedis, posterior tibial, and radial areas. Respiratory: Clear to auscultation bilaterally. No wheezes, rales, or rhonchi. Good air exchange bilaterally. Abdomen: Soft, nontender, nondistended. Bowel sounds present. Normoactive in all 4 quadrants. No hepatosplenomegaly. No abdominal bruits auscultated. No hepatojugular reflux. Genitourinary: No suprapubic or CVA tenderness. Skin: Pacemaker incision present on the left upper chest without discharge or erythema, covered with Mepilex. Neuro: Cranial nerves II through XII intact. No focal deficits. Alert and oriented x3. Psychiatric: Pleasant and cooperative. DISCHARGE PLAN: The patient will be discharged to home. The patient has already had appointments set up with her salt miner and oncologist for Wednesday next week. The patient has a tentative date set for her bronchoscopy with Dr. Mandi Valladares, set for 07/01/18. If necessary, the patient should have a biopsy of her liver nodules before this time if possible due to need for less anesthesia and the opportunity to do staging concurrently. The patient should have, as above, a liver ultrasound with possible liver cut biopsy; if lesions look concerning for malignancy, the patient should have a CT of the abdomen with adrenal follow- through. These will be ordered and arranged with the patient. The patient will have routine followup care with her salt miner. The patient should follow instructions for arm restrictions as provided with her discharge including not lifting her arm above her head. The patient will be on Keflex for 4 days. The patient will be continued on pain control with naproxen and [place] as above. The patient should establish and follow with a primary care provider for general medical management. The patient has a hemoglobin A1c of 5.8. The patient should engage in an exercise regimen with a focus on weight loss to help reverse her minor prediabetes. The patient should return to the hospital for any symptoms such as severe shortness of breath, hemoptysis, chest pain, high fevers, syncope, or other alarming symptoms. The patient should have consistent carbohydrate diet and engage in activity with the above restrictions. TIME SPENT: Approximately 75 minutes was spent on this discharge, 45 of which was spent [id number] with the patient obtaining history and physical, discussing treatment plan, and coordinating care. CECELIA GOLDEN [id number]/[facility] #: [id number] J[place]AN
== END 2018-06-22 17:47 | disposition home or self-care (01) | DRG 244 ==
LOC: ED 08:14 → ICU 12:15 → MEDTELE 06-22 05:17
PROVIDERS: ADMIT Internal Medicine; ATTEND Internal Medicine
PROC: 02H63JZ Insertion of Pacemaker Lead into Right Atrium, Percutaneous Approach (ICD-10-PCS; 2018-06-21)
PROC: 0JH606Z Insertion of Pacemaker, Dual Chamber into Chest Subcutaneous Tissue and Fascia, Open Approach (ICD-10-PCS; principal; 2018-06-21 15:00)
DX: I49.5 Sick sinus syndrome (principal); F17.210 Nicotine dependence, cigarettes, uncomplicated; R91.8 Other nonspecific abnormal finding of lung field; I49.3 Ventricular premature depolarization; J45.909 Unspecified asthma, uncomplicated; M54.5 Low back pain; G89.29 Other chronic pain; K76.9 Liver disease, unspecified; R16.0 Hepatomegaly, not elsewhere classified; E27.9 Disorder of adrenal gland, unspecified; I27.20 Pulmonary hypertension, unspecified; I08.1 Rheumatic disorders of both mitral and tricuspid valves; Z79.82 Long term (current) use of aspirin; Z88.2 Allergy status to sulfonamides; Z82.49 Family history of ischemic heart disease and other diseases of the circulatory system; Z80.1 Family history of malignant neoplasm of trachea, bronchus and lung; Z72.89 Other problems related to lifestyle
CPT/HCPCS: 33208; 36415; 71045; 71046; 80048; 80053; 80061; 81003; 82550; 82553; 83036; 83605; 83735; 83880; 84443; 84484; 85025; 85610; 85730; 86140; 87040; 87641; 93005; 93306; 99156; 99157; 99284; A9270-GY; C1785; C1898; J0690; J1644; J2250; J3010

== ENCOUNTER 2018-07-01 10:07 | Day surgery (SDC) | payer MEDICAID ==
[~2018-07-01 10:07] MED LIST: Buffered Lidocaine 0.9% SYRIN* 5 ML/SYR SYRINGE INTRADERM ONE
[2018-07-01] MEDS ORDERED: Sugammadex * 200 MG/2 ML VIAL IV PUSH ONE ×2 (11:25)
[2018-07-01] MEDS ORDERED: Rocuronium* 10 MG/ML VIAL ONE ×2 (11:26)
[2018-07-01] MEDS ORDERED: Midazolam* 1 MG/ML 2 ML VIAL (2 MG) ONE ×2 (11:28)
[2018-07-01] MEDS ORDERED: fentaNYL* 50 MCG/ML 2 ML VIAL (100 MCG VIAL) ONE ×2 (11:28)
[2018-07-01] MEDS ORDERED: Lidocaine 2% PF * 5 ML VIAL ONE ×2 (12:27)
[2018-07-01] MEDS ORDERED: Naloxone* 0.4 MG/ML 1 ML VIAL IV PRN (12:44)
[2018-07-01] MEDS ORDERED: Acetaminophen TAB* 325 MG PO PRN (12:44)
[2018-07-01] MEDS ORDERED: Ketorolac INJ* 30 MG/ML 1 ML VIAL IV PRN (12:44)
[2018-07-01] MEDS ORDERED: Metoclopramide IV* 5 MG/ML 2 ML VIAL IV PRN (12:44)
[2018-07-01] MEDS ORDERED: Ondansetron INJ* 2 MG/ML VIAL ONE ×2 (12:45)
[2018-07-01] MEDS ORDERED: Dexamethasone IV* 4 MG/ML 1 ML (4 MG) ONE ×2 (12:45)
[2018-07-01 14:23] VITALS: BP 121/82
--- NOTE | 2018-07-02 04:24 | PRO ---
BRONCHOSCOPY REPORT: DATE OF PROCEDURE: 07/01/18 PROCEDURE PERFORMED: Bronchoscopy and endobronchial ultrasound-guided fine needle aspiration of L10, station 7 nodes PREPROCEDURAL DIAGNOSIS: Lung mass. POSTPROCEDURAL DIAGNOSIS: Lung cancer. ANESTHESIA: General anesthesia. ANESTHESIOLOGIST: Dr. Sara Alba. DESCRIPTION OF PROCEDURE: Informed consent was obtained from the patient prior to the procedure after all the risks and benefits were thoroughly explained. Appropriate time-out was agreed on and performed prior to the procedure. Flexible Olympus bronchoscope was inserted through airway for inspection. No endobronchial lesions were noted. Thick secretions were noted and were suctioned out. There was evidence of narrowing of right upper lobe bronchus. Bronchoscope was then advanced into left bronchial tree, which was inspected. No endobronchial lesions were noted. Thick secretions were noted and were suctioned out. Bronchoscope was then withdrawn and EBUS bronchoscope was inserted. L10 lymph node was sampled with 2 passes. Rapid on-site evaluation revealed malignant cells. Station 7 node was then found to be enlarged and was sampled with 4 passes. Rapid on-site evaluation revealed malignant cells. Air- dried cells were also prepared. Rest of the specimen was placed in formalin. The patient tolerated the procedure well. The patient was extubated and seen in Recovery in optimal condition. [id number]/[facility] #: [id number] [facility]
== END 2018-07-01 14:25 | disposition home or self-care (01) ==
LOC: OR 10:07
PROVIDERS: ATTEND Internal Medicine
DX: C34.11 Malignant neoplasm of upper lobe, right bronchus or lung (principal); C77.1 Secondary and unspecified malignant neoplasm of intrathoracic lymph nodes; Z72.0 Tobacco use; I49.5 Sick sinus syndrome; R00.1 Bradycardia, unspecified; Z95.0 Presence of cardiac pacemaker; I34.0 Nonrheumatic mitral (valve) insufficiency
CPT/HCPCS: 81445; 88172; 88173; 88305; 88360; J1100; J2250; J2405; J3010

== ENCOUNTER → 2018-07-11 23:15 | Emergency (ER) | payer MEDICAID, OTHER ==
[~2018-07-11 23:15] MED LIST changes: -Buffered Lidocaine 0.9% SYRIN* 5 ML/SYR SYRINGE INTRADERM ONE; +HYDROmorphone INJ* 2 MG/ML CARPUJECT SYRINGE IV SLOW PU ONE; +Iodixanol 320 (CONTRAST) 100 ML SDV IV ONE; +Morphine INJ* 4 MG/ML 1 ML SYRINGE (NEW SYRINGE VERSION) IV ONE; +Ondansetron INJ* 2 MG/ML VIAL IV ONE; +traMADol TAB* 50 MG PO ONE
[2018-07-12 00:23] LABS: INR 1.1 (0.77-1.02)
[2018-07-12 00:27] LABS: EGFR Non-African American 59.1 (>60)
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
[2018-07-12 02:47] LABS: ABS Basophils 0.2 10^3/ul (0-0.2); ABS Eosinophils 0.3 10^3/ul (0-0.6); ABS Lymphocytes 1.9 10^3/ul (1.0-4.8); ABS Monocytes 1.3 10^3/ul (0-0.8); ABS Neutrophils 8.6 10^3/ul (1.5-7.7); ABS Nucleated RBC 0 10^3/ul; Eosinophil % 2.3 % (0-6); Hematocrit 39 % (35-47); Hemoglobin 12.8 g/dl (12.0-16.0); Lymphocyte % 15.8 % (25-47); Mean Corpuscular HGB Conc 33 g/dl (31-36); Mean Corpuscular Hemoglobin 26 pg (27-31); Mean Corpuscular Volume 80 fL (80-97); Nucleated Red Blood Cells % 0; Platelet Count 279 10^3/ul (150-450); Red Blood Count 4.92 10^6/ul (4.00-5.40); Red Cell Distribution Width 13 % (10.5-15); White Blood Count 12.3 10^3/ul (3.5-10.8)
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
[2018-07-12 10:08] VITALS: BP 121/80
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
== END | disposition home or self-care (01) ==
LOC: ED 23:15
DX: R07.89 Other chest pain (principal); S09.93XA Unspecified injury of face, initial encounter; V47.5XXA Car driver injured in collision with fixed or stationary object in traffic accident, initial encounter; Y92.9 Unspecified place or not applicable; F17.210 Nicotine dependence, cigarettes, uncomplicated; C34.90 Malignant neoplasm of unspecified part of unspecified bronchus or lung; Z95.0 Presence of cardiac pacemaker; R06.02 Shortness of breath
CPT/HCPCS: 36415; 70486; 71260; 72125; 80053; 85025; 85610; 85730; 93005; 96374; 96375; 99284; A9270-GY; J1170; J2270; J2405; Q9967